=== PATIENT | female | born 1985 | race Caucasian/White ===

== ENCOUNTER 2016-09-19 08:15 | Emergency (ER) | payer SELFPAY ==
--- NOTE | 2016-09-19 08:27 | ED Physician Chart ---
Chief Complaint/HPI - Patient Information Date Seen:: 09/19/16 Time Seen:: 08:20 Chief Complaint:: Toothache for one week. History of Present Illness:: Pt has had pain in R lower molar tooth for about week. No fever. Taking po well without N/V/D. Pt has pending appointment at dental clinic this week. Allergies:: ibuproden. Vitals:: see Nurse Note. Historian:: Patient Family MD/PCP:: unknown LMP:: 09/04/16 Review:: Nurse's Note Reviewed Review of Systems - Review of Systems General/Constitutional: No fever, No chills, No weight loss, No weakness, No edema, No loss of appetite Skin: No rash, No bruising Head: No headache, No light-headedness Eyes: No pain ENT: No earache, No nasal drainage, No sore throat, Other (Toothache, see HPI.) Neck: No neck pain, No swelling, No thyromegaly, No stiffness, No mass noted Cardio Vascular: No chest pain, No palpitations, No PND, No orthopnea, No edema Pulmonary: No SOB, No cough, No sputum, No wheezing GI: No nausea, No vomiting, No diarrhea, No pain G/U: No dysuria, No frequency, No hematuria Musculoskeletal: No bone or joint pain, No back pain, No muscle pain Endocrine: No polyuria, No polydipsia Psychiatric: No prior psych history Hematopoietic: No bruising, No lymphadenopathy Allergic/Immuno: No urticaria, No angioedema Neurological: No syncope, No focal symptoms, No weakness, No paresthesia, No headache, No confusion, No vertigo Past Medical History - Past Medical History Past Medical History: No significant medical hx Family History: Heart disease (father), Diabetes Melitus (mother), HTN (parents) , Cancer (parents) Social History: Non Smoker, No Alcohol, No Drug Use, , Other (lives with her [facility].) Employment:: unemployed. Surgical History: None Psychiatricy History: None Medication: Reviewed Physical Exam - Physical Examination General/Constitutional: Awake, Well-developed, well-nourished, Alert, No distress, GCS 15, Non-toxic appearing, Ambulatory Other Gen/Cons comments:: Breathes comfortably, speaks clearly, interacts normally, and ambulates without difficulty. Head: Atraumatic Eyes: Lids, conjuctiva normal, PERRL, EOMI Skin: Nl inspection, No rash, No skin lesions, No ecchymosis, Well hydrated, No lymphadenopathy ENMT: External ears, nose nl, Nasal exam nl, Oropharynx nl, Tonsils nl Other ENMT comments:: R 2nd molar tooth in lower jaw shows mild discoloration with partial loss of the tooth c/w dental decay. No other abnormal findings. Neck: Nontender, Full ROM w/o pain, No nuchal rigidity, No mass, No stridor Respiratory: Nl effort/Exclusion, Clear to Auscultation, No Wheeze/Rhonchi/Rales Cardio Vascular: RRR, No murmur, gallop, rubs, NL S1 S2 GI: No tenderness/rebounding/guarding, No organomegaly, Normal BS's, Nondistended, No mass/bruits Other GI comments:: Abdomen is soft. Extremities: No tenderness or effusion, Full ROM, normal strength in all extremities, No edema, Normal digits & nails Neuro/Psych: Alert/oriented (oriented x 3), Judgement/insight normal, Mood normal, Normal gait, No focal deficits ED Septic Shock - . Is Septic Shock (SBP<90, OR Lactate>4 mmol\L) present?: No Reassessment (Disposition) - Reassessment Reassessment:: 0850 Pt remains stable. Pt requests to go home now and prefers to take pain medication at home. Aftercare instructions have been given. - Diagnosis Diagnosis:: Toothache in R 2nd molar tooth in lower jaw c/w pulpitis, stable. - Aftercare/Follow up Instructions Aftercare/Follow-Up Instructions:: Refer to Discharge Instructions Notes:: Avoid oral intake of extreme hot or cold food/liquid. Push oral fluid. Do not take acetaminophen containing medications such as Tylenol with the use of Tylenol #3. Drowsiness precautions given with the use of Tylenol #3. Use barrier method control in addition to oral contraceptive when taking antibiotic. F/U with dentist of pt's choice in one day for recheck and further treatment. Return to ER immediately if condition worsens or if any further questions/ problems. Medication Prescribed:: Amoxicillin 500 mg tab one tab po q8h for 10 days. D-30 R-0 Tylenol #3 one tab po q6h prn severe pain only. D-10 R-0 - Patient Disposition Discharge/Transfer:: Home Time:: 08:55 Condition at Disposition:: Stable
== END 2016-09-19 08:47 | disposition home or self-care (01) ==
LOC: ER 08:15
DX: K04.01 Reversible pulpitis (principal); Z88.6 Allergy status to analgesic agent
CPT/HCPCS: Z7502